=== PATIENT | male | born 1995 | race Caucasian/White ===

== ENCOUNTER 2024-01-02 10:51 | Emergency (ER) | payer OTHER, SELFPAY ==
[2024-01-02 10:51] VITALS: PULSE 87; RESP 18; TEMP 36.1; O2SAT 99; BMI 22.1
[2024-01-02 11:05] VITALS: BP 122/62
--- NOTE | 2024-01-02 11:08 | EDS_ITS ---
HPI <KIRBY Brown - Last Filed: 01/02/24 12:42> History of Present Illness Chief Complaint: Bite Narrative Narrative: Patient presenting today due to possible bat exposure that occurred today and a half ago. He reports that he was walking on a trail in the evening, he saw a bat circling above him, he then felt something hit the left side of his head. The next day he had his mom check the area and she noticed a very small velma on his scalp. He now presents for evaluation. He denies any other acute complaints. PFSH <KIRBY Brown - Last Filed: 01/02/24 12:42> PFSH Allergy/AdvReac Type Severity Reaction Status Date / Time No Known Allergies Allergy Verified 01/02/24 10:51 Social History Smoking Status: Never smoker ROS <KIRBY Brown - Last Filed: 01/02/24 12:42> ROS ED Constitutional Constitutional ED: Denies chills or fever(s) Cardiovascular Cardiovascular: Denies chest pain or palpitations Respiratory/Chest Respiratory/Chest: Denies cough or dyspnea Gastrointestinal Gastrointestinal: Denies abdominal pain, nausea or vomiting Musculoskeletal Musculoskeletal: Denies arthralgias or myalgias Integumentary Reports Abrasions; Denies rash Neurologic Neurologic: Denies weakness EXAM <KIRBY Brown - Last Filed: 01/02/24 12:42> Physical Exam Const Vital Signs: 01/02/24 10:51 01/02/24 11:05 01/02/24 11:23 Temperature 97 F L 98 F Temperature Source Temporal Pulse Rate 87 67 Respiratory Rate 18 16 Blood Pressure 122/62 H 141/82 H Blood Pressure Mean 82 101 Pulse Ox 99 97 Oxygen Delivery Method Room Air Positive well nourished, well developed and no apparent distress General Appearance ED: well developed HEENT Reports normocephalic and head/scalp atraumatic HEENT Narrative: No abrasions/ lacerations on the scalp on my examination. Mouth ED: Yes moist mucous membranes normal Eyes PERRL and EOMs intact bilaterally Neck full ROM and supple Chest Wall inspection of chest normal Resp normal respiratory effort and clear to auscultation bilaterally Cardio regular rate and regular rhythm GI soft to palpation, non-tender, non-distended and no masses Back/Spine normal ROM and normal to inspection Extremity normal to inspection and full ROM Neuro oriented x3, CN's II-XII intact bilaterally, moves all extremities, no focal motor deficits and no sensory deficits noted Sensorium / Orientation: awake and alert Psych mental status grossly normal and thought process normal Skin no rashes or lesions noted and no wounds <Dr. Zach Romero MD - Last Filed: 01/02/24 11:42> Physical Exam Const Vital Signs: 01/02/24 10:51 01/02/24 11:05 01/02/24 11:23 Temperature 97 F L 98 F Temperature Source Temporal Pulse Rate 87 67 Respiratory Rate 18 16 Blood Pressure 122/62 H 141/82 H Blood Pressure Mean 82 101 Pulse Ox 99 97 Oxygen Delivery Method Room Air MDM <KIRBY Brown - Last Filed: 01/02/24 12:42> [facility] MDM Narrative Medical decision making narrative: Patient presenting with concerns for a small abrasion to the left side of his scalp that he noticed yesterday. He was walking outside about a day and a half ago and saw a bat flying overhead, he thought he felt something hit him in the back of the head but did not actually see a bat come into contact with him. On my examination, there is no scalp abrasion. No evidence of a bite or signs of infection. According to CDC guidelines, rabies prophylaxis is not indicated at this time. Patient discharged in stable condition. <Dr. Zach Romero MD - Last Filed: 01/02/24 11:42> [facility] Treatment and Re-Evaluation Comments:: I have personally performed a face to face assessment of the patient and have reviewed the OMAIRA Note. I performed a substantive portion of the visit including all aspects of the following. My villarreal findings include: History is patient states he felt something hit him in the back of the head left occipital, and on inspection later saw what appeared to be a small abrasion that is no longer there. This happened 1-2 days ago. Just prior to this he remembers seeing a bat flying overhead, he was outdoors. Exam is normal inspection of affected area of scalp, no tenderness no signs of infection no signs of a bite. Medical Decison Making reassured. According to CDC guidelines, there is no indication for rabies vaccination or immunoglobulin injection at this time which I discussed with the patient. Other additions or changes: [None] Discharge Plan Triage Chief Complaint: Bite ED Midlevel Provider: Jessica Arroyo ED Provider: Zach Romero Dx/Rx/DC Orders Clinical Impression: Abrasion of scalp Instructions: ED Abrasion Primary Care Provider: Care Physician,No Primary Activity Restrictions/Additional Instructions: Return for any concerning signs or symptoms. Disposition Disposition: Home, Self Care Discharge Date/Time: 01/02/24 11:27
[2024-01-02 11:23] VITALS: BP 141/82; PULSE 67; RESP 16; TEMP 36.6; O2SAT 97
== END 2024-01-02 11:27 | disposition home or self-care (01) ==
LOC: ED 11:23
PROVIDERS: Emergency Provider Emergency Medicine; Visit Provider Emergency Medicine
DX: Z71.1 Person with feared health complaint in whom no diagnosis is made (principal)
CPT/HCPCS: 99283